=== PATIENT | male | born 1930 | race Caucasian/White ===

== ENCOUNTER → 2018-10-10 | Outpatient (CLI) | payer OTHER | LOC: BMCIMAGING 11:06 | PROVIDERS: ATTEND Internal Medicine Rheumatology | DX: M19.041 Primary osteoarthritis, right hand (principal); M19.042 Primary osteoarthritis, left hand; M11.231 Other chondrocalcinosis, right wrist; R93.7 Abnormal findings on diagnostic imaging of other parts of musculoskeletal system; M51.35 Other intervertebral disc degeneration, thoracolumbar region; Z96.641 Presence of right artificial hip joint ==